=== PATIENT | male | born 1945 | race Caucasian/White ===

== ENCOUNTER 2019-07-05 05:45 | Inpatient (IN) ==
--- NOTE | 2019-07-04 10:16 | Anesthesiology Consultation ---
Date of Service July 04, 2019 Assessment & Plan (1) Encounter for pre-operative examination: Chart Review Chart Review: Acceptable Risk for Surgery (moderate to high), Pending: Refer to Additional Notes / Consult section (patient needs to stop Brulinta 3 days prior to surgery;patient at high risk for in stent thrombosis(proximal LAD stent 03/31/2019)) and Patient NOT seen in Pre Admission Testing ASA ASA4 Proposed Anesthesia Anesthesia Type: General Anesthesia Line Insertion: Arterial line History Surgery Operation Date: 07/05/19 07:30 Proposed Procedures p Right Robotic Video-Assisted Thoracoscopy with Right Middle Lobectomy, and Mediastinal Lymphadenectomy - Zay Colby MD, FACS Height/Weight Height: 5 ft 8 in Weight: 77.111 kg Allergies Allergy/AdvReac Type Severity Reaction Status Date / Time No Known Allergies Allergy Unverified 06/20/19 09:41 Medications Home Medications Medication Instructions Recorded Confirmed Last Taken aspirin 81 mg tablet,delayed 81 mg PO DAILY 05/23/19 06/20/19 05/25/19 release atorvastatin 80 mg tablet 80 mg PO HS 05/23/19 06/20/19 05/25/19 furosemide 20 mg tablet 20 mg PO HS 05/23/19 06/20/19 05/25/19 losartan 25 mg tablet 25 mg PO QAM 05/23/19 06/20/19 05/25/19 metoprolol succinate 25 mg 25 mg PO QAM 05/23/19 06/20/19 05/25/19 tablet,extended release 24 hr nitroglycerin 0.4 mg sublingual 0.4 mg SL UD PRN 05/23/19 06/20/19 03/28/19 tablet ticagrelor 90 mg tablet 90 mg PO BID 05/23/19 06/20/19 05/25/19 Past Medical History Medical History COPD (chronic obstructive pulmonary disease) Current every day smoker History of heart attack X2 - MOST RECENT MAR 2019 AND STENTS 5 YR AGO - STENT X 1 History of kidney stones Hyperlipidemia Hypertension Exercise / Class Metabolic Activity III < 4 Walking/Shop/Light housework Past Family History Family History Mother Cancer Brother Colorectal cancer Sister Heart disease Past Surgical History Surgical History History of bronchoscopy History of colonoscopy History of heart artery stent March 2019 AND 5 YR AGO , STENT X1 History of urologic surgery FOR KIDNEY STONE Past Anesthesia History No Hx of Anesthesia Complications and No Family Hx of Anesthesia Complications History of PONV No Hx of PONV and No Hx of Motion Sickness Social History Smoking Status: Current every day smoker (STARTED AT 17 YEARS OLD) tobacco type: cigarettes Smoking cigarettes per day: 30 Hx Alcohol Use: Yes Alcohol type: hard liquor Alcohol Intake Frequency Comment: 1 SHOT A DAY Hx Substance Use: No substance use type: does not use Testing Laboratory Results WBC: 7.9 Hc.2 Hct: 47.4 PLATELETS: 309 SODIUM: 137 POTASSIUM: 4.5 CHLORIDE: 105 CO2: 27 BUN: 16 CREATININE: 1.1 GLUCOSE: 106 PT: PTT: INR: UA: TYPE AND SCREEN: Electrocardiogram Date: 03/30/19 Findings: + SB @ (at 56;low voltage QRS;anteroseptal infarct ,age ?) Chest X-Ray Date: 03/29/19 Findings: + mass (stable right lower lung mass) Echocardiogram Date: 03/31/19 EF: 55 LV Function: normal Other Findings: + diastolic dysfunction (grade 1) Valvular Disease: + no significant valvular disease Cardiac Catheterization Date: 03/28/19 Findings: + LMA (Distal left main trunk-40%; Proximal LAD 75%- s/p PTCA and JULITO ) Intervention: + PCI (proximal LAD) and + JULITO placed (proximal LAD)
[2019-07-05] MEDS ORDERED: LR 15ML/HR IV SCH (06:00)
--- NOTE | 2019-07-05 06:18 | History & Physical Report ---
Date of Service July 05, 2019 Assessment & Plan (1) Mass of middle lobe of right lung: I have had a long talk with the patient in the office and here this morning and the preoperative unit. He looks remarkably well preserved and his lung function is remarkably preserved for a man who was smoked for 56 years and was well over [id number] history. He also has coronary artery disease and was symptomatic with an MT just 3 months ago however, his setup technician is deemed him to be a moderate risk. We are going to proceed with a right middle lobectomy robotically today. We will also do a based on lymphadenectomy. My feeling is that we are dealing with a non-small cell lung carcinoma. It is not in a good place to biopsy percutaneously or bronchoscopically. I discussed this in detail and outlined risk such as pneumonia, pulmonary emboli with deep vein thrombosis, myocardial infarction or arrhythmia, prolonged air leak, empyemas, and infections. He understands. We will proceed today. Present on Admission?: Yes History of Present Illness Raoul Martin is a 73-year-old male who continues to smoke and in fact smoked a pack of cigarettes yesterday. He has coronary artery disease and had a stent placed 3 months ago and is on Brilinta. He has been found to have a hypermetabolic mass in his right middle lobe which is almost certainly a non- small cell lung carcinoma. He has no evidence of extrathoracic spread. He has been worked up by Dr. Tejinder Lindsay from pulmonary and has seen his setup technician down in [place]. He is a moderate risk of in-stent stenosis however, our window of opportunity to resect this and give him his best chance of a cure is now. We have discussed this fully with the patient and his family as well as referring physicians. We have also discussed this with anesthesia. We are going to proceed with a robot-assisted right thoracoscopic middle lobectomy today. Primary Care Provider: Berry Mcfadden MD Allergies Allergy/AdvReac Type Severity Reaction Status Date / Time No Known Allergies Allergy Verified 07/05/19 06:07 Home Medications Home Medications Medication Instructions Recorded Confirmed Type aspirin 81 mg tablet,delayed 81 mg PO DAILY 05/23/19 07/05/19 History release atorvastatin 80 mg tablet 80 mg PO HS 05/23/19 07/05/19 History furosemide 20 mg tablet 20 mg PO HS 05/23/19 07/05/19 History losartan 25 mg tablet 25 mg PO QAM 05/23/19 07/05/19 History metoprolol succinate 25 mg 25 mg PO QAM 05/23/19 07/05/19 History tablet,extended release 24 hr nitroglycerin 0.4 mg sublingual 0.4 mg SL UD PRN 05/23/19 07/05/19 History tablet ticagrelor 90 mg tablet 90 mg PO BID 05/23/19 07/05/19 History Past Med/Surg History Medical History COPD (chronic obstructive pulmonary disease) Current every day smoker History of heart attack X2 - MOST RECENT MAR 2019 AND STENTS 5 YR AGO - STENT X 1 History of kidney stones Hyperlipidemia Hypertension Surgical History History of bronchoscopy History of colonoscopy History of heart artery stent March 2019 AND 5 YR AGO , STENT X1 History of urologic surgery FOR KIDNEY STONE Family History Mother Cancer Brother Colorectal cancer Sister Heart disease Social History (Updated 06/01/19 @ 16:12 by Karlee Mishra RN) Preferred Language: Argentine Communication Ability: Effective Aircraft Communicator Required: No Beliefs That Will Affect Care: None marital status: Current Living Situation: Spouse current occupational status: retired 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 Denies palpitations. Otherwise "I am ready to go ". Physical Exam Physical Exam: This is a male who appears younger than stated age of 73. He is awake and alert. His extra documents are intact. Sclera pale but anicteric. He has no nasolabial flattening. His tongue is midline. Sore mucosa is moist. His neck is supple. I do not detect carotid bruits or lymphadenopathy. He has no wheezing although he does have mildly decreased breath sounds in the bases. He has a regular rate and rhythm of his heart. His abdomen is flat soft nontender no evidence of ascites or hepatosplenomegaly. He has no peripheral edema or joint effusions. He has peripheral pulses which are palpable. Neurologically is completely intact. PG Care Time/CCT Total # of Minutes Spent Total Time Spent with Patient: Total time spent is greater than 50% in coordination of care (as documented) at patient's floor/unit and/or counseling patient:
[2019-07-05] MEDS ORDERED: BUPIVACAINE 0.5 % 5 MG/1 ML MPF 30ML VIAL ONE (06:59)
[2019-07-05] MEDS ORDERED: SODIUM CHLORIDE 0.9% PF 50 ML VIAL ONE (06:59)
[2019-07-05] MEDS ORDERED: BUPIVACAINE LIPOSOME 1.3% 266 MG/20 ML VIAL ONE (07:00)
[2019-07-05] MEDS ORDERED: LARYING-O-JET KIT (LTA) ONE (07:01)
[2019-07-05] MEDS ORDERED: GLYCOPYRROLATE 0.2 MG/ML VIAL ONE (07:01)
[2019-07-05] MEDS ORDERED: DEXAMETHASONE SOD INJ 4 MG/ML VIAL ONE (07:01)
[2019-07-05] MEDS ORDERED: LIDOCAINE HCL 2% 2 ML VIAL/AMP(20MG/ML) INFIL ONE (07:01)
[2019-07-05] MEDS ORDERED: fentaNYL citrate 100 MCG/2 ML VIAL ONE ×3 (07:01→11:57)
[2019-07-05] MEDS ORDERED: PROPOFOL IV EMULSION 10 MG/ML 20 ML VIAL IV ONE (07:01)
[2019-07-05] MEDS ORDERED: NEOSTIGMINE METHYLSULFATE 5 MG/5 ML SYR ONE (07:01)
[2019-07-05] MEDS ORDERED: ONDANSETRON INJ 2 MG/ML 2 ML VIAL ONE (07:01)
[2019-07-05] MEDS ORDERED: MIDAZOLAM HCL 1 MG/ML 2ML VIAL ONE (07:01)
[2019-07-05] MEDS ORDERED: ROCURONIUM BROMIDE 10 MG/ML 5 ML VIAL ONE ×6 (07:01→10:04)
[2019-07-05] MEDS ORDERED: ALBUMIN HUMAN 5% 12.5 GM/250 ML VIAL IV ONE (07:01)
[2019-07-05] MEDS ORDERED: ALBUT/IPRATROP 3MG/0.5MG NEB 3 ML VIAL NEB STA (07:05)
[2019-07-05] MEDS ORDERED: CEFAZOLIN 2000MG 2,000 MG/15 ML SYR IV ONE (09:09)
[2019-07-05] MEDS ORDERED: SURGICEL ABSORB HEMOSTAT 2IN X 14IN TOP ONE (09:12)
[2019-07-05] MEDS ORDERED: PHENYLEPHRINE 100MCG/ML 5ML SYR ONE (09:35)
[2019-07-05] MEDS ORDERED: PHENYLEPHRINE HCL 10 MG/ML VIAL ONE (09:35)
--- NOTE | 2019-07-05 11:14 | Post Operative Brief Note ---
PG Immediate Post Op with CF Date of Surgery July 05, 2019 Pre & Post Diagnosis Operation Date: 07/05/19 07:30 Pre-Op Diagnosis: Right Lung Mass Post-Op Diagnosis: Right Lung Mass I identified the patient and participated in the time-out.: Yes Procedure Operation Date: 07/05/19 07:30 Actual Procedures p Right Robotic Video-Assisted Thoracoscopy with Right Middle Lobectomy, and Mediastinal Lymphadenectomy(Right) - Zay Colby MD, FACS Surgeon Zay Colby MD, FACS Sterile Processing Manager Letitia SEGAL Estimated Blood Loss 75 Findings Consistent with Post-Op Diagnosis Specimens Specimen Description: A. R9 lymph node B. R8 lymph node C. Level 7 lymph node x's 4 D. Level R4 lymph node x's 3 E. R2 lymph node x's 5 F. R10 lymph node x's 2 G. R11 lymph node x's 8 H. R12 lymph node x's 7 Drains Chest Tube (24 Fr Thal Chest Tube) and Muñiz Catheter (16 Fr muñiz catheter inserted by YEE Francis without difficulty. Draining clear yellow urine. Anesthesia to monitor urine output. )
--- NOTE | 2019-07-05 11:20 | Operative Report ---
PG Post Operative Report Pre & Post Diagnosis Operation Date: 07/05/19 07:30 Pre-Op Diagnosis: Right Lung Mass Post-Op Diagnosis: Right Lung Mass I identified the patient and participated in the time-out.: Yes Procedure Operation Date: 07/05/19 07:30 Actual Procedures p Right Robotic Video-Assisted Thoracoscopy with Right Middle Lobectomy, and Mediastinal Lymphadenectomy(Right) - Zay Colby MD, FACS Surgeon Zay Colby MD, FACS Principal Gifts Officer Letitia SEGAL Estimated Blood Loss 75 Findings Consistent with Post-Op Diagnosis Specimens Lymph Nodes Right middle lobe Drains 24 FR. Anesthesia Type General Complications none Disposition Accompanied Patient To Recovery: No Disposition: Recovery Room Description of Procedure This is a 73-year-old male with long history of cigarette smoker he has a hypermetabolic mass in his right middle lobe. He was worked up and felt to be a candidate for surgery. On the morning of 07/05/2019 patient brought to operating room and underwent an uncomplicated robot-assisted thoracoscopic right middle lobectomy with extensive mediastinal lymphadenectomy. He tolerated it well. Procedure: Patient brought to the operating room and laid supine position. General anesthesia induced and frequent which performed a double-lumen tube with bronchoscopic guidance. After appropriate monitoring and drainage lines were placed patient was placed in the left lateral acute position his right chest prepped and draped in usual sterile fashion. Appropriate timeout of been called and prophylactic antibiotics given patient had 5 separate ports made. A 12 mm camera port was placed close to the midaxillary line the eighth interspace and then anterior to this an 8 mm port was placed in posterior to this an 8 mm port was placed about 10 cm away in each direction. The posterior incision was another 10 cm away with a 5 mm port. We placed an plant attendant or assistant operator's port just above the diaphragm anteriorly and then posteriorly. These were 15 mm ports. No the posterior port was placed later during the case as we did not have a good angle for the vein. Really upon entering the chest we could see that we had good isolation. Inferior pulmonary ligament was taken down the level 9 and 8 lymph nodes harvested. I then went up and removed almost the entire packet of of a group of lymph nodes in the subcarinal area. We then removed a large packet of nodes from the level 2 and level 4 areas. Coming back down anteriorly within took some level 10 nodes and then went to the fissures and dissected out multiple level 11 nodes. We isolated the inferior pulmonary vein nicely and Endo DES stapler was fired although we did it from a posterior incision which we had made. We then fired a stapler across the right middle lobe bronchus and then there was one large middle lobe artery. We did complete the fissure between the lower lobe and middle lobe with the cautery and there were really no air leaks here. We then used a stapler to initiate the fissure anteriorly. The right middle lobe was then delivered off the field in a Endobag. Prior to case we placed 20 cc of 260 mg of Exparel and 30 cc of 0.5% bupivacaine and 200 cc of normal saline injected each of the ports before making incision. We then did not enter thoracic intercostal block and blocked each of the intercostal spaces with the liposomal bupivacaine under thoracoscopic guidance. At the conclusion of the case we placed 24 Lebanese chest tube to the anterior port and sutured in place heavy silk suture. We then closed the larger assistance ports with 0 Vicryl to close the muscle layers and then 4 Monocryl was used in running septic or fashion approximate the wound edges. He tolerated very well and was extubated in the room with negligible blood loss. I attest to the content of the Intraoperative Record and any orders documented therein. Any exceptions are noted below.
[2019-07-05] MEDS ORDERED: METOCLOPRAMIDE HCL INJ 5 MG/ML 2 ML VIAL IV ONE (11:35)
[2019-07-05] MEDS ORDERED: ASPIRIN 325 MG ECTAB PO ONE ×2 (11:46→11:55)
[2019-07-05] MEDS ORDERED: ePHEDrine sulfate 50 MG/ML AMP IV PRN (11:56)
[2019-07-05] MEDS ORDERED: ATROPINE SULFATE 0.1 MG/ML 10ML SYR IV PRN (11:56)
[2019-07-05] MEDS ORDERED: ONDANSETRON INJ 2 MG/ML 2 ML VIAL IV PRN ×2 (11:56→13:04)
[2019-07-05] MEDS ORDERED: HYDROmorphone INJ 1 MG/ML SYRINGE IV PRN (11:56)
[2019-07-05] MEDS: fentaNYL citrate 100 MCG/2 ML VIAL IV PRN ×2 (11:57→12:02)
--- NOTE | 2019-07-05 12:06 | XRay Report ---
XR chest 1V portable CLINICAL HISTORY: right middle lobectomy COMPARISON STUDY: March 29, 2019 FINDINGS: There is been interval resection of the right midlung zone pulmonary nodule. There is a rig ht-sided chest tube present. There is a trace right apical pneumothorax. There are bibasilar parenchy mal opacities which are nonspecific likely are atelectatic. There are old left-sided rib fractures.[ IMPRESSION: 1. Interval resection of a right midlung zone pulmonary nodule 2. Right-sided chest tube. Trace right apical pneumothorax 3. Basilar opacities statistically atelectatic Electronically signed by: Smith Gloria M.D. 07/05/2019 12:05 PM
[2019-07-05] MEDS ORDERED: NITROGLYCERIN SL 0.4 MG/TAB TAB SL PRN (13:04)
[2019-07-05] MEDS: D5W AND 1/2NSS 1,000 ML IV SCH ×2 (13:11→21:21)
[2019-07-05] MEDS: ACETAMINOPHEN 1,000 MG/100 ML VIAL IV SCH ×2 (13:17→21:21)
[2019-07-05] MEDS: MoRPHine SULFATE 2 MG/ML CARP IV PRN ×3 (13:18→20:32)
--- NOTE | 2019-07-05 13:41 | Anesthesiology Progress Note ---
Date of Service July 05, 2019 Anesthesia Post Procedure Vital Signs Vital Signs: Temp Pulse Pulse Resp BP BP Pulse Ox 07/05/19 13:15 67 18 118/55 L 92 07/05/19 13:01 36.5 C 67 11 L 101/58 L 90 07/05/19 12:31 37.3 C 66 19 117/60 96 07/05/19 12:20 37.3 C 66 17 112/64 100 07/05/19 12:10 64 17 117/64 100 07/05/19 12:00 65 17 116/68 100 07/05/19 11:50 69 22 124/57 L 100 07/05/19 11:40 64 22 135/70 100 07/05/19 11:34 36.3 C L 65 24 132/70 100 07/05/19 07:16 63 18 97 07/05/19 06:16 36.6 C 61 20 162/78 H 96 Pain Intensity Right Chest: Pain Intensity: 4 Transfer of Care Handoff Completed per policy Notes Mental Status: alert / awake / arousable and participated in evaluation Patient Amnestic to Procedure: Yes Nausea / Vomiting: adequately controlled Pain: adequately controlled Airway Patency, RR, SpO2: stable & adequate BP & HR: stable & adequate Hydration State: stable & adequate Anesthetic Complications: no major complications apparent and Pt Satisfied with anesthetic care Notes: The patient is a 73 y/o male with a history of coronary artery disease with recent MN with JULITO to the LAD 03/2019 who is status post Right Robotic Video-Assisted Thoracoscopy with Right Middle Lobectomy, and Mediastinal Lymphadenectomy. The patient did well intraoperatively with no issues. He was extubated without difficulty and taken to PACU. The patient did well in PACU a nd will be transferred to the ICU for close monitoring. Report was given to the supervisor maintenance and custodians Dr. Lindsay.
[2019-07-05] MEDS ORDERED: ALBUT/IPRATROP 3MG/0.5MG NEB 3 ML VIAL NEB PRN (15:24)
--- NOTE | 2019-07-05 15:24 | Critical Care Consultation ---
Date of Consultation July 05, 2019 Assessment & Plan (1) Coronary arteriosclerosis: Impression: 73-year-old male found to have PET avid right middle lobe mass concerning for primary malignancy status post resection today. He is doing well clinically. Recommendations: 1. Status post right middle lobectomy for lung cancer: Management per thoracic surgery. Defer chest tube management to them. Pain control per thoracic surgery. 2. COPD: The patient does not appear overtly bronchospastic currently. No indication for steroids. As needed DuoNeb's. 3. Hypoxemic respiratory failure: Tinea wean oxygen as tolerated. I-S as tolerated. 4. Coronary artery disease: Status post drug-eluting stent 3 months ago. Restart aspirin. If he does well may consider restarting his Brilinta tomorrow. He is been off for 5 days. Would like to minimize exposure off due to risk of in-stent restenosis. 5. Remaining issues have been well addressed by the thoracic surgical service. We will continue to follow during his ICU course. Feel free to contact us with questions or concerns. (2) Status post lobectomy of lung: (3) Lung cancer: (4) Hypoxemia: History of Present Illness Attending Physician: Zay Colby MD, FACS History of Present Illness Patient seen at the request of Dr. Colby postoperatively. I had the opportunity of meeting this patient the pulmonary clinic. He was a 73-year-old referred for an abnormal chest x-ray. This demonstrated a right middle lobe nodule which was on CT scan. PET scan showed avidity of the nodule without any obvious uptake. He underwent endobronchial ultrasound to clear the mediastinum with no evidence of pathologically involved lymph nodes. He was taken today for resection of the right middle lobe with lymph node dissection. He does have a history of coronary disease status post myocardial infarction about 3 months ago with drug-eluting stents placed. He has been off his Brilinta. Aspirin was given today. He is hemodynamically stable and awake alert. He is complaining of some postoperative pain. Allergies Allergy/AdvReac Type Severity Reaction Status Date / Time No Known Allergies Allergy Verified 07/05/19 06:07 Home Medications Home Medications Medication Instructions Recorded Confirmed Type aspirin 81 mg tablet,delayed 81 mg PO DAILY 05/23/19 07/05/19 History release atorvastatin 80 mg tablet 80 mg PO HS 05/23/19 07/05/19 History furosemide 20 mg tablet 20 mg PO HS 05/23/19 07/05/19 History losartan 25 mg tablet 25 mg PO QAM 05/23/19 07/05/19 History metoprolol succinate 25 mg 25 mg PO QAM 05/23/19 07/05/19 History tablet,extended release 24 hr nitroglycerin 0.4 mg sublingual 0.4 mg SL UD PRN 05/23/19 07/05/19 History tablet ticagrelor 90 mg tablet 90 mg PO BID 05/23/19 07/05/19 History Patient History Medical History COPD (chronic obstructive pulmonary disease) Current every day smoker History of heart attack X2 - MOST RECENT MAR 2019 AND STENTS 5 YR AGO - STENT X 1 History of kidney stones Hyperlipidemia Hypertension Surgical History History of bronchoscopy History of colonoscopy History of heart artery stent March 2019 AND 5 YR AGO , STENT X1 History of urologic surgery FOR KIDNEY STONE Family History Mother Cancer Brother Colorectal cancer Sister Heart disease Social History (Updated 06/01/19 @ 16:12 by Karlee Mishra RN) Preferred Language: Sami Communication Ability: Effective Tufting Machine Fixer Required: No Beliefs That Will Affect Care: None marital status: Current Living Situation: Spouse current occupational status: retired 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 No additions Physical Exam Constitutional: WD/WN, vitals as above Neck: trachea midline, no thyromegaly Respiratory: Decreased breath sounds. Chest tube in place. No air leak. Cardiovascular: RRR, no murmur, no edema Gastrointestinal (Abdomen): normal bowel sounds, soft, nontender, no hepatosplenomegaly Musculoskeletal: Extremities: extremities normal to inspection Skin: no rashes, warm and dry Neurologic: Nonfocal exam Lymphatic: no cervical lymphadenopathy Results & Data Vital Signs (Past 12 Hours) Vital Signs Temp Pulse Pulse Resp BP BP Pulse Ox 07/05/19 14:30 70 17 128/69 95 07/05/19 14:01 69 15 96 07/05/19 14:00 68 17 120/56 L 96 07/05/19 13:45 71 20 109/60 95 07/05/19 13:30 70 24 103/58 L 94 07/05/19 13:15 67 18 118/55 L 92 07/05/19 13:03 66 07/05/19 13:01 36.5 C 67 11 L 101/58 L 90 07/05/19 12:45 36.5 C 69 20 103/58 L 95 07/05/19 12:31 37.3 C 66 19 117/60 96 07/05/19 12:20 37.3 C 66 17 112/64 100 07/05/19 12:10 64 17 117/64 100 07/05/19 12:00 65 17 116/68 100 07/05/19 11:50 69 22 124/57 L 100 07/05/19 11:40 64 22 135/70 100 07/05/19 11:34 36.3 C L 65 24 132/70 100 07/05/19 07:16 63 18 97 07/05/19 06:16 36.6 C 61 20 162/78 H 96 Laboratory Results Preoperative lab were reviewed. Please see EMR Diagnostic Findings Imaging studies were reviewed Chest x-ray from today demonstrated postoperative changes with a right-sided chest tube in place. Small apical pneumo. Lungs were otherwise free of infiltrate. Coding Level of Care Code 27552 Inpt Consult Level 4 Diagnoses Coronary arteriosclerosis I25.10 Status post lobectomy of lung Z90.2 Lung cancer C34.90 Hypoxemia R09.02 Time Spent (min) 55
--- NOTE | 2019-07-05 15:28 | Cardiology Consultation ---
Date of Consultation July 05, 2019 Assessment & Plan (1) Coronary arteriosclerosis: he has a historyOf coronary disease including an acute myocardial infarction approximately 3 months ago. We have report of percutaneous intervention to the proximal LAD. The inpatient report having had a staged intervention with additional percutaneous intervention performed during the same admission. Those records are not available. Seems done very well since that procedure without recurrence of his index symptom. This primarily involves left arm and chest discomfort. As with all patients with known coronary disease, optimizing myocardial oxygen delivery and limiting demand is essential. We should maintain a good hemoglobin level, good oxygenation and normal blood pressures. We should avoid significant tachycardia, hypotension or hypoxia. Would agree with continuing his home medications including his beta-chica, anti-lipid agent and aspirin Restarting his Brilinta at the earliest opportunity is paramount in the hopes of preventing any acute stent thrombosis. Maintain good oxygen saturation Avoid significant tachycardia hypo or hypertension Monitor blood loss closely and consider transfusion for significant blood loss. History of Present Illness Reason for Consultation: History of CAD Requesting Physician: Earnestine Attending Physician: Zay Colby MD, [facility] History of Present Illness Patient is a 73-year-old gentleman with a history of coronary artery disease having most recently undergone percutaneous intervention possibly to multiple vessels in March of this year. The patient was discovered incidentally to have a right middle lung mass. Evaluation suggested malignancy and the absence of metastatic disease. He therefore underwent right middle lobectomy today for curative purposes. The initial perioperative. An operation appear to have been uncomplicated. The patient does have a remote history of coronary disease having suffered a myocardial infarction in 2012. It seems he did undergo angiography at that time and percutaneous intervention by report.Patient appeared to have done well since thatTime until March of this year. Patient states that he awoke from sleep with left arm discomfort. This eventually generalized to include precordial chest pain as well. He presented to an outside facility where he has felt to have acute myocardial infarction. It seems that the patient did undergo multivessel stenting as a staged procedure we do have some reports involving percutaneous intervention to the LAD. He is also noted to have some mild distal left main disease. It is unclear what other vessels required intervention. He claims to have done well since that point. He is a very active individual who was accustomed to moderate to severe activity. He has not reported recent symptoms of chest discomfort with activity or at rest. He does not appear to have limiting dyspnea. He is not appear to have significant fatigue. He denies a sense of palpitations, lightheadedness, dizziness or presyncope. Allergies Allergy/AdvReac Type Severity Reaction Status Date / Time No Known Allergies Allergy Verified 07/05/19 06:07 Home Medications Home Medications Medication Instructions Recorded Confirmed Type aspirin 81 mg tablet,delayed 81 mg PO DAILY 05/23/19 07/05/19 History release atorvastatin 80 mg tablet 80 mg PO HS 05/23/19 07/05/19 History furosemide 20 mg tablet 20 mg PO HS 05/23/19 07/05/19 History losartan 25 mg tablet 25 mg PO QAM 05/23/19 07/05/19 History metoprolol succinate 25 mg 25 mg PO QAM 05/23/19 07/05/19 History tablet,extended release 24 hr nitroglycerin 0.4 mg sublingual 0.4 mg SL UD PRN 05/23/19 07/05/19 History tablet ticagrelor 90 mg tablet 90 mg PO BID 05/23/19 07/05/19 History Patient History Medical History COPD (chronic obstructive pulmonary disease) Current every day smoker History of heart attack X2 - MOST RECENT MAR 2019 AND STENTS 5 YR AGO - STENT X 1 History of kidney stones Hyperlipidemia Hypertension Surgical History History of bronchoscopy History of colonoscopy History of heart artery stent March 2019 AND 5 YR AGO , STENT X1 History of urologic surgery FOR KIDNEY STONE Family History Mother Cancer Brother Colorectal cancer Sister Heart disease Social History Preferred Language: Qatari Communication Ability: Effective Cash Processor Required: No Beliefs That Will Affect Care: None marital status: Current Living Situation: Spouse current occupational status: retired 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 No history of lower extremity edema. No orthopnea. Physical Exam Physical Exam: The patient is alert and oriented. Mood and affect appeared normal. He answered all questions appropriately. Mildly somnolent HEENT: Pupils are equal and reactive to light and accommodation. Extraocular movements are intact. The sclerae are anicteric. Neuro: Cranial nerves intact Neck: Patient's neck is supple. He has palpable carotid pulses bilaterally without bruits on auscultation. There is no evidence of jugular venous distention. The thyroid is not enlarged. Lungs: Reduced breath sounds in the right lung. Some occasional crackles at the left base. No expiratory wheezing. Normal respiratory effort. Cardiac: Heart demonstrates a regular rate and rhythm. Normal S1 and S2. No murmurs on examination. Pulses: The patient has palpable radial pulses bilaterally that are equal in intensity Extremities: There was no evidence of hypoperfusion. There is no cyanosis or clubbing. There is no edema. Skin: I did not appreciate any rashes on examination today. Results & Data Vital Signs (Past 12 Hours) Vital Signs Temp Pulse Pulse Resp BP BP Pulse Ox 07/05/19 14:30 70 17 128/69 95 07/05/19 14:01 69 15 96 07/05/19 14:00 68 17 120/56 L 96 07/05/19 13:45 71 20 109/60 95 07/05/19 13:30 70 24 103/58 L 94 07/05/19 13:15 67 18 118/55 L 92 07/05/19 13:03 66 07/05/19 13:01 36.5 C 67 11 L 101/58 L 90 07/05/19 12:45 36.5 C 69 20 103/58 L 95 07/05/19 12:31 37.3 C 66 19 117/60 96 07/05/19 12:20 37.3 C 66 17 112/64 100 07/05/19 12:10 64 17 117/64 100 07/05/19 12:00 65 17 116/68 100 07/05/19 11:50 69 22 124/57 L 100 07/05/19 11:40 64 22 135/70 100 07/05/19 11:34 36.3 C L 65 24 132/70 100 07/05/19 07:16 63 18 97 07/05/19 06:16 36.6 C 61 20 162/78 H 96 Laboratory Results Abnormal Lab Results 07/05/19 07/05/19 07/05/19 06:04 06:04 13:04 POC Glucose Nasal Screen MRSA (PCR) Negative Genetic Analysis Reprt Blood Type A Negative Antibody Screen NEGATIVE Crossmatch See Detail 07/05/19 14:27 POC Glucose 142 H Nasal Screen MRSA (PCR) Genetic Analysis Reprt Blood Type Antibody Screen Crossmatch Diagnostic Findings Reviewed his cardiac catheterization report dated 03/28/2019. This involved stenting of the proximal LAD do to 75 percent eccentric hazy stenosis at that site. Echocardiogram performed 03/31/2019: Normal LV systolic function. Stage I diastolic dysfunction. Aortic valve sclerosis without stenosis. No other significant valvular disease. ECG Additional Comments: Preop EKG demonstrated sinus bradycardia with possible old inferior IN and poor R-wave progression in the anterior leads. PG Care Time/CCT Total # of Minutes Spent Total Time Spent with Patient: Total time spent is greater than 50% in coordination of care (as documented) at patient's floor/unit and/or counseling patient:
[2019-07-05] MEDS: OXYCODONE HCL IR 5 MG TAB (IMMEDIATE RELEASE) PO PRN (17:00)
[2019-07-05] MEDS: ATORVASTATIN 40 MG TAB PO SCH (20:15)
[2019-07-05] MEDS: METOCLOPRAMIDE HCL INJ 5 MG/ML 2 ML VIAL IV SCH (20:15)
[2019-07-05] MEDS: DOCUSATE SODIUM 100 MG CAP PO SCH (20:16)
[2019-07-05] MEDS ORDERED: INFLUENZA VACCINE HIGH DOSE 65+ 0.5 ML SYR IM ONE (21:00)
[2019-07-05] MEDS ORDERED: INFLUENZA ADMINISTRATION CHARGE ONE (21:00)
[2019-07-06] MEDS: D5W AND 1/2NSS 1,000 ML IV SCH (04:08)
[2019-07-06] MEDS: OXYCODONE HCL IR 5 MG TAB (IMMEDIATE RELEASE) PO PRN ×2 (04:08→10:00)
[2019-07-06] MEDS: METOCLOPRAMIDE HCL INJ 5 MG/ML 2 ML VIAL IV SCH ×2 (04:11→11:48)
[2019-07-06 04:24] LABS: Basophils # (auto) 0.01 K/uL (0-0.2); Basophils % (auto) 0.1 %; Eosinophils # (auto) 0.02 K/uL (0-0.5); Eosinophils % (auto) 0.2 %; Hematocrit (blood only) 41.5 % (42-52); Hemoglobin 14.1 g/dL (14.0-18.0); Immature Granulocytes # (auto) 0.03 K/uL (0.00-0.02); Immature Granulocytes % (auto) 0.3 %; Lymphocytes # (auto) 1.44 K/uL (1.2-3.4); Mean Corpuscular Hemoglobin 36.2 pg (25-34); Mean Corpuscular Volume 106.7 fL (80-100); Mean Platelet Volume 8.8 fL (7.4-10.4); Monocytes % (auto) 8.4 %; Neutrophils # (auto) 9.46 K/uL (1.4-6.5); Platelet Count 204 K/uL (130-400); RDW Coefficient of Variation 14.3 % (11.5-14.5); RDW Standard Deviation 56.1 fL (36.4-46.3); Red Blood Count 3.89 M/uL (4.7-6.1); White Blood Count 11.96 K/uL (4.8-10.8)
[2019-07-06 04:41] LABS: BUN Creatinine Ratio 17.4 (10-20); Calcium 8.1 mg/dl (8.5-10.1); Creatinine Clr Calc Pharmacy 50.6 ml/min; Est GFR (Non-African American) 56.9; Magnesium 1.9 mg/dl (1.8-2.4); Phosphorus 2.9 mg/dl (2.5-4.9); Potassium 4.1 mmol/L (3.5-5.1)
[2019-07-06] MEDS: ACETAMINOPHEN 1,000 MG/100 ML VIAL IV SCH (05:47)
[2019-07-06] MEDS: MoRPHine SULFATE 2 MG/ML CARP IV PRN ×6 (06:22→21:58)
--- NOTE | 2019-07-06 07:03 | XRay Report ---
XR chest 1V portable CLINICAL HISTORY: right middle lobectomy COMPARISON STUDY: 07/05/2019 FINDINGS: Postsurgical changes are present on the right. A right-sided chest tube is again evident. T here is increasing right-sided subcutaneous edema. There is a trace right apical pneumothorax. There are bilateral lower lobe basilar airspace opacities likely atelectatic although an infectious/inflamm atory processes could appear similar IMPRESSION: 1. Increasing right-sided subcutaneous emphysema 2. Stable trace right apical pneumothorax 3. Bibasilar airspace opacity statistically atelectatic Electronically signed by: Smith Gloria M.D. 07/06/2019 7:02 AM
--- NOTE | 2019-07-06 07:42 | Critical Care Progress Note ---
Date of Service July 06, 2019 Assessment & Plan (1) Coronary arteriosclerosis: Impression: 73-year-old male found to have PET avid right middle lobe mass concerning for primary malignancy status post resection today. He is doing well clinically. Recommendations: 1. Status post right middle lobectomy for lung cancer: Management per thoracic surgery. Defer chest tube management to them. Pain control per thoracic surgery. The increased density at the right lung base likely represents atelectatic changes. Continue to follow. 2. COPD: The patient does not appear overtly bronchospastic currently. No indication for steroids. Continue nebulized bronchodilators as needed 3. Hypoxemic respiratory failure: Tinea wean oxygen as tolerated. I-S as tolerated. 4. Coronary artery disease: Status post drug-eluting stent 3 months ago. Continue aspirin. Restarting Brilinta per thoracic surgery. Outpatient follow- up with cardiology 5. Patient appears stable to move out of the intensive care unit. Available to see as needed for pulmonary issues. Discussed with Dr. Colby. (2) Status post lobectomy of lung: (3) Lung cancer: (4) Hypoxemia: Subjective Patient did well overnight. No acute events. His pain is better controlled but he continues to have some discomfort at the surgical site. He is coughing but not expectorating phlegm. He feels his breathing is adequate. He is up to a chair this morning. Review of Systems Review of Systems: See HPI. No additions Physical Exam Constitutional: WD/WN, vitals as above Neck: trachea midline, no thyromegaly Respiratory: Mildly diminished breath sounds bilaterally with some crackles at the right lung base. No air leak on chest tube Cardiovascular: RRR, no murmur, no edema Gastrointestinal (Abdomen): normal bowel sounds, soft, nontender, no he patosplenomegaly Musculoskeletal: Extremities: extremities normal to inspection Skin: no rashes, warm and dry Lymphatic: no cervical lymphadenopathy Results & Data Vital Signs (Past 12 Hours) Vital Signs Temp Pulse Resp BP Pulse Ox 07/06/19 06:01 64 16 89 L 07/06/19 06:00 36.6 C 64 18 122/67 90 07/06/19 05:01 64 13 93 07/06/19 05:00 68 17 121/64 92 07/06/19 04:28 64 19 130/68 87 L 07/06/19 04:00 36.7 C 67 19 88 L 07/06/19 03:00 66 16 113/62 89 L 07/06/19 02:02 75 18 121/73 92 07/06/19 01:00 67 18 108/60 94 07/06/19 00:00 36.7 C 73 21 108/64 94 07/05/19 23:00 36.7 C 79 18 117/68 93 07/05/19 22:56 68 07/05/19 22:00 70 16 118/61 95 07/05/19 21:00 75 17 116/61 91 07/05/19 20:00 36.5 C 75 20 116/62 94 07/05/19 19:50 73 16 95 Laboratory Results 07/06/19 04:06 07/06/19 04:06 Diagnostic Findings Chest x-ray from today independently reviewed and compared to chest x-ray from 07/05/2019. There is mild increased right basilar density likely atelectasis. Otherwise no significant change Coding Level of Care Code 01182 Subseq Hosp Care Lvl 2 Diagnoses Coronary arteriosclerosis I25.10 Status post lobectomy of lung Z90.2 Lung cancer C34.90 Hypoxemia R09.02
--- NOTE | 2019-07-06 08:12 | Anesthesia Procedure Note ---
Date of Service July 06, 2019 this is a post procedure note, not a post epidural note.The patient did not have an epidural. Anesthesia Post Epidural Note Vital Signs Vital Signs: Temp Pulse Resp BP Pulse Ox 36.7 C 76 20 146/79 H 95 07/07/19 11:05 07/07/19 11:05 07/07/19 11:05 07/07/19 11:05 07/07/19 11:05 Pain Intensity Right Chest: Pain Intensity: 4 Notes Mental Status: alert / awake / arousable and participated in evaluation Patient Amnestic to Procedure: Yes Nausea / Vomiting: adequately controlled Pain: adequately controlled Airway Patency, RR, SpO2: stable & adequate BP & HR: stable & adequate Hydration State: stable & adequate Anesthetic Complications: no major complications apparent and Pt Satisfied with anesthetic care
[2019-07-06] MEDS: ASPIRIN 81 MG ECTAB PO SCH (08:20)
[2019-07-06] MEDS: METOPROLOL SUCC 25MG EXT REL TAB PO SCH (08:20)
[2019-07-06] MEDS: DOCUSATE SODIUM 100 MG CAP PO SCH ×2 (08:20→20:14)
[2019-07-06] MEDS: LOSARTAN POTASSIUM 25 MG TAB PO SCH (08:20)
--- NOTE | 2019-07-06 08:20 | Surgery Progress Note ---
Date of Service July 06, 2019 Assessment & Plan (1) Status post lobectomy of lung: Present on Admission?: No (2) Lung cancer: Present on Admission?: Yes (3) Coronary arteriosclerosis: Present on Admission?: Yes (4) Old myocardial infarct: Overall, I am quite pleased with the patient. He tolerated his lobectomy very well. Blood loss was negligible. His labs look good today. He got aspirin yesterday but we are going to resume his Brilinta today. We will move him up to the regular floor. Discontinue IV fluids and try to wean his oxygen off. Have some trouble with urination but this is "getting better". He is tolerating a diet. He has no air leak and I will probably remove his chest tube tomorrow. 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 It appears all margins are negative. Of course, we harvested multiple lymph nodes and the final pathology is not back on those yet. They understand. Present on Admission?: Yes Subjective Mr. Martin was seen this morning. He sitting in a chair on 1 L of O2 with saturations at 92%. He has some incision pain as expected but has done very well. Denies chest pain or left arm pain. No palpitations. Physical Exam Physical Exam: Actually moving air fairly well. He has mild expiratory wheezing. He has no air leak. He has no neck vein distention. He has a regular rate and rhythm of his heart. Sequential compression devices are in place but he has no edema. Good perfusion to his feet. Results & Data Vital Signs (Past 12 Hours) Vital Signs Temp Pulse Resp BP Pulse Ox 07/06/19 07:00 36.7 C 64 14 128/74 92 07/06/19 06:40 63 07/06/19 06:01 64 16 89 L 07/06/19 06:00 36.6 C 64 18 122/67 90 07/06/19 05:01 64 13 93 07/06/19 05:00 68 17 121/64 92 07/06/19 04:28 64 19 130/68 87 L 07/06/19 04:00 36.7 C 67 19 88 L 07/06/19 03:00 66 16 113/62 89 L 07/06/19 02:02 75 18 121/73 92 07/06/19 01:00 67 18 108/60 94 07/06/19 00:00 36.7 C 73 21 108/64 94 07/05/19 23:00 36.7 C 79 18 117/68 93 07/05/19 22:56 68 07/05/19 22:00 70 16 118/61 95 07/05/19 21:00 75 17 116/61 91 PG Care Time/CCT Total # of Minutes Spent Total Time Spent with Patient: Total time spent is greater than 50% in coordination of care (as documented) at patient's floor/unit and/or counseling patient:
--- NOTE | 2019-07-06 08:20 | Operative Report ---
PG Post Operative Report Pre & Post Diagnosis Operation Date: 07/05/19 07:30 Pre-Op Diagnosis: Right Lung Mass Post-Op Diagnosis: Right Lung Mass I identified the patient and participated in the time-out.: Yes Procedure Operation Date: 07/05/19 07:30 Actual Procedures p Right Robotic Video-Assisted Thoracoscopy with Right Middle Lobectomy, and Mediastinal Lymphadenectomy(Right) - Zay Colby MD, FACS Surgeon Zay Colby MD, FACS Allied Health Instructor Letitia SEGAL Estimated Blood Loss 75 I attest to the content of the Intraoperative Record and any orders documented therein. Any exceptions are noted below.
[2019-07-06] MEDS ORDERED: TICAGRELOR 90 MG TAB PO ONE (08:22)
[2019-07-06] MEDS: TICAGRELOR 90 MG TAB PO SCH ×2 (08:22→20:04)
[2019-07-06] MEDS: NICOTINE 14 MG/24 HR PATCH TD SCH (08:57)
[2019-07-06] MEDS ORDERED: ENOXAPARIN INJ 40 MG/0.4 ML SYR SQ SCH (09:00)
--- NOTE | 2019-07-06 10:39 | Cardiology Progress Note ---
Date of Service July 06, 2019 Assessment & Plan (1) Coronary arteriosclerosis: No clinical evidence of ischemia or acute coronary syndrome. Seems that the plan is to resume his presented today. He is already taking the remainder of his cardiac medications. His hemoglobin level is normal today. Blood pressure pulses have been normal. Appears to be maintaining reasonable oxygenation on some supplemental oxygen. Care this point is simply supportive. Will continue to monitor him for any symptoms concerning for coronary insufficiency, angina or ACS. Subjective Patient's primary concern this morning was breathing difficulty. States he is more comfortable sitting upright or standing. He has some discomfort in the right lower chest area. Review of Systems Review of Systems: Per HPI Physical Exam Physical Exam: The patient is alert and oriented. Mildly tachypneic. Somewhat uncomfortable. Answered all questions appropriately.. Neuro: Cranial nerves intact Lungs: Normal breath sounds in both lung burgos. No expiratory wheezing. Norm al excursion. Some occasional bronchial breath sounds associated with chest tube in the right lung. Cardiac: Heart demonstrates a regular rate and rhythm. Normal S1 and S2. No murmurs on examination. Results & Data Vital Signs (Past 12 Hours) Vital Signs Temp Pulse Pulse Resp BP Pulse Ox 07/06/19 10:28 73 24 95 07/06/19 08:00 62 18 138/57 L 94 07/06/19 07:00 36.7 C 64 14 128/74 92 07/06/19 06:40 63 07/06/19 06:01 64 16 89 L 07/06/19 06:00 36.6 C 64 18 122/67 90 07/06/19 05:01 64 13 93 07/06/19 05:00 68 17 121/64 92 07/06/19 04:28 64 19 130/68 87 L 07/06/19 04:00 36.7 C 67 19 88 L 07/06/19 03:00 66 16 113/62 89 L 07/06/19 02:02 75 18 121/73 92 07/06/19 01:00 67 18 108/60 94 07/06/19 00:00 36.7 C 73 21 108/64 94 07/05/19 23:00 36.7 C 79 18 117/68 93 07/05/19 22:56 68 Laboratory Results Abnormal Lab Results 07/05/19 07/05/19 07/05/19 06:04 13:04 14:27 WBC RBC Hgb Hct MCV MCH MCHC RDW Std Deviation RDW Coeff of Baljeet Plt Count MPV Immature Gran % (Auto) Neut % (Auto) Lymph % (Auto) Hitchcock % (Auto) Eos % (Auto) Baso % (Auto) Immature Gran # (Auto) Neut # (Auto) Lymph # (Auto) Hitchcock # (Auto) Eos # (Auto) Baso # (Auto) Sodium Potassium Chloride Carbon Dioxide Anion Gap BUN Creatinine Est Cr Clr Drug Dosing Est GFR ( Amer) Est GFR (Non-Af Amer) BUN/Creatinine Ratio Glucose POC Glucose 142 H Calcium Phosphorus Magnesium Nasal Screen MRSA (PCR) Negative Genetic Analysis Reprt 07/05/19 07/05/19 07/06/19 16:35 19:53 04:06 WBC 11.96 H RBC 3.89 L Hgb 14.1 Hct 41.5 L MCV 106.7 H MCH 36.2 H MCHC 34.0 RDW Std Deviation 56.1 H RDW Coeff of Baljeet 14.3 Plt Count 204 MPV 8.8 Immature Gran % (Auto) 0.3 Neut % (Auto) 79.0 Lymph % (Auto) 12.0 Hitchcock % (Auto) 8.4 Eos % (Auto) 0.2 Baso % (Auto) 0.1 Immature Gran # (Auto) 0.03 H Neut # (Auto) 9.46 H Lymph # (Auto) 1.44 Hitchcock # (Auto) 1.00 H Eos # (Auto) 0.02 Baso # (Auto) 0.01 Sodium Potassium Chloride Carbon Dioxide Anion Gap BUN Creatinine Est Cr Clr Drug Dosing Est GFR ( Amer) Est GFR (Non-Af Amer) BUN/Creatinine Ratio Glucose POC Glucose 134 H 162 H Calcium Phosphorus Magnesium Nasal Screen MRSA (PCR) Genetic Analysis Reprt 07/06/19 07/06/19 04:06 07:35 WBC RBC Hgb Hct MCV MCH MCHC RDW Std Deviation RDW Coeff of Baljeet Plt Count MPV Immature Gran % (Auto) Neut % (Auto) Lymph % (Auto) Hitchcock % (Auto) Eos % (Auto) Baso % (Auto) Immature Gran # (Auto) Neut # (Auto) Lymph # (Auto) Hitchcock # (Auto) Eos # (Auto) Baso # (Auto) Sodium 136 Potassium 4.1 Chloride 103 Carbon Dioxide 28 Anion Gap 5.0 BUN 22 H Creatinine 1.24 Est Cr Clr Drug Dosing 50.6 Est GFR ( Amer) 66.0 Est GFR (Non-Af Amer) 56.9 BUN/Creatinine Ratio 17.4 Glucose 133 H POC Glucose 99 Calcium 8.1 L Phosphorus 2.9 Magnesium 1.9 Nasal Screen MRSA (PCR) Genetic Analysis Reprt PG Care Time/CCT Total # of Minutes Spent Total Time Spent with Patient: Total time spent is greater than 50% in coordination of care (as documented) at patient's floor/unit and/or counseling patient:
--- NOTE | 2019-07-06 10:57 | XRay Report ---
XR chest 1V portable CLINICAL HISTORY: 73 years-old Male presenting with sob. TECHNIQUE: Portable upright AP view of the chest was obtained. COMPARISON: 07/06/2019 at 6:43 AM. FINDINGS: Large bore right pleural drain remains position at the periphery of the right mid lung. Associated so ft tissue emphysema along the inferior right chest wall. Cardiac silhouette enlarged as on prior. Cor onary artery stents or calcification noted. Persistent right basilar opacity and minimal left basilar opacity. Small left pleural effusion. No identifiable pneumothorax. Degenerative changes of the thor acic spine. Old left rib fracture noted. Upper abdomen normal. IMPRESSION: 1. Right pleural drain in place. No identifiable right pneumothorax. 2. Resistant right basilar infiltrate. This could represent infection or atelectasis. 3. Small left pleural effusion. 4. Cardiomegaly. Electronically signed by: Raul Forte M.D. 07/06/2019 10:56 AM
[2019-07-06] MEDS ORDERED: LORazepam 1 MG/2 ML VIAL IV STA (11:06)
[2019-07-06] MEDS ORDERED: FUROSEMIDE 20 MG in SYRINGE 0 ML IV ONE (11:15)
[2019-07-06] MEDS ORDERED: KETOROLAC 30 MG/ML VIAL IV ONE (11:25)
[2019-07-06] MEDS ORDERED: KETOROLAC 30 MG/ML VIAL ONE (11:29)
--- NOTE | 2019-07-06 12:32 | Critical Care Progress Note ---
ICU Progress Note Date of Service July 06, 2019 Vital Signs Vital Signs Temp Pulse Pulse Resp BP BP Pulse Ox 07/06/19 11:18 76 185/81 H 99 07/06/19 10:28 73 24 95 07/06/19 08:00 62 18 138/57 L 94 07/06/19 07:00 36.7 C 64 14 128/74 92 07/06/19 06:40 63 07/06/19 06:01 64 16 89 L 07/06/19 06:00 36.6 C 64 18 122/67 90 07/06/19 05:01 64 13 93 07/06/19 05:00 68 17 121/64 92 07/06/19 04:28 64 19 130/68 87 L 07/06/19 04:00 36.7 C 67 19 88 L 07/06/19 03:00 66 16 113/62 89 L 07/06/19 02:02 75 18 121/73 92 07/06/19 01:00 67 18 108/60 94 Notes Notes: Called urgently to bedside to evaluate patient with acute onset of shortness of breath. The patient was assessed. He was standing upright. He was awake alert and conversant. He was tachypneic. He is complaining of pain in the right side of his chest. I assessed the patient for bilateral breath sounds. He was not wheezing. He had received a chest x-ray and EKG as well as a bronchodilator treatment prior to my arrival. I reviewed the chest x-ray and EKG which did not demonstrate any acute abnormalities. His chest tube continued to manifest excellent titling. I attached it to suction with no evidence of an air leak. He was complaining of 9 out of 10 pain at his surgical site. Thoracic surgery had ordered Lasix and Ativan which the patient was just receiving. I administered some morphine which was also beneficial. We then gave him a Toradol dose as well as some additional morphine with improvement in his clinical symptoms. I discussed the case with Dr. Colby on the phone and at bedside with Dr. Michelle. Myocardial ischemia felt to be unlikely. No evidence of pneumothorax. I have not excluded pulmonary embolism although it is felt consistent with acute surgical pain. We will continue narcotics and anti-inflammatories and reassess. Do not think CT angiogram is warranted currently. The patient had significant improvement. We will continue to follow.
[2019-07-06] MEDS: ACETAMINOPHEN 325 MG TAB PO SCH ×2 (13:33→20:03)
[2019-07-06] MEDS: ATORVASTATIN 40 MG TAB PO SCH (20:03)
[2019-07-07] MEDS: ACETAMINOPHEN 325 MG TAB PO SCH ×2 (02:16→07:21)
[2019-07-07] MEDS: OXYCODONE HCL IR 5 MG TAB (IMMEDIATE RELEASE) PO PRN (06:33)
[2019-07-07] MEDS: MoRPHine SULFATE 2 MG/ML CARP IV PRN (07:21)
--- NOTE | 2019-07-07 07:25 | XRay Report ---
XR chest 1V portable HISTORY: 73 years-old Male RML follow-up study in a patient with respiratory distress and recent rig ht lung surgery COMPARISON: Chest radiograph 07/06/2019 TECHNIQUE: Portable AP view of the chest FINDINGS: Unchanged cardiomediastinal and hilar silhouettes. No pneumothorax. Moderate emphysema. Postoperative changes of the right lung with stable positioning of the right-sided chest tube. Persistent subcutan eous emphysema about the right lateral chest wall. Trace pleural effusions with persistent right grea ter than left bibasilar opacities. Multiple healed remote left-sided rib fractures. Degenerative mckinley ges of the shoulders and spine. I IMPRESSION: 1. Postoperative changes of the right lung with stable positioning of the right-sided chest tube. 2. No pneumothorax identified. 3. Trace pleural effusions with persistent bibasilar opacities. 4. Emphysema. The above report was generated using voice recognition software. It may contain grammatical, syntax o r spelling errors. Electronically signed by: North Yeager M.D. 07/07/2019 7:24 AM
--- NOTE | 2019-07-07 08:30 | XRay Report ---
XR chest 1V portable CLINICAL HISTORY: tube removal COMPARISON STUDY: Chest radiograph July 07, 2019 7:07 AM. FINDINGS: The right chest tube has been removed. Bibasilar opacities are noted. There is a trace left pleural effusion. No pneumothorax is identified. There is no evidence for pulmonary edema. Subcutane ous gas within the right chest wall is unchanged. Postoperative findings within the right lung are no quiana. IMPRESSION: No pneumothorax following chest tube removal. Electronically signed by: Robert Hodgson M.D. 07/07/2019 8:29 AM
[2019-07-07] MEDS: TICAGRELOR 90 MG TAB PO SCH (08:50)
[2019-07-07] MEDS: DOCUSATE SODIUM 100 MG CAP PO SCH (08:50)
[2019-07-07] MEDS: ASPIRIN 81 MG ECTAB PO SCH (08:50)
[2019-07-07] MEDS: METOPROLOL SUCC 25MG EXT REL TAB PO SCH (08:50)
[2019-07-07] MEDS: LOSARTAN POTASSIUM 25 MG TAB PO SCH (08:50)
[2019-07-07] MEDS: NICOTINE 14 MG/24 HR PATCH TD SCH (08:51)
--- NOTE | 2019-07-07 10:23 | Pulmonology Progress Note ---
Date of Service July 07, 2019 Assessment & Plan (1) Coronary arteriosclerosis: Impression: 73-year-old male found to have PET avid right middle lobe mass concerning for primary malignancy status post resection. He had an episode of shortness of breath and chest pain yesterday which was likely postsurgical and resolved with Ativan and Toradol and morphine Recommendations: 1. Status post right middle lobectomy for lung cancer: Management per thoracic surgery. Pain management per surgery 2. COPD: The patient does not appear bronchospastic currently. No indication for steroids. Continue nebulized bronchodilators as needed 3. Hypoxemia: Resolved. The patient is on room air currently 4. Coronary artery disease: Status post drug-eluting stent 3 months ago. Continue aspirin. Brilinta per thoracic surgery. Outpatient follow-up with cardiology 5. I would be happy to see this pleasant patient back in the outpatient setting for continued pulmonary follow-up if needed. Will sign off. Please call if we can be of additional pulmonary assistance (2) Status post lobectomy of lung: (3) Lung cancer: (4) Hypoxemia: Subjective No acute events overnight. The patient states his breathing is better. His chest tubes been removed. He had no additional issues after yesterday morning's events. He is not coughing or expectorating phlegm. No significant chest pain. Review of Systems Review of Systems: Unchanged from prior Physical Exam Constitutional: WD/WN, vitals as above Neck: trachea midline, no thyromegaly Respiratory: Breath sounds slightly diminished bilaterally. No wheezing. Cardiovascular: RRR, no murmur, no edema Gastrointestinal (Abdomen): normal bowel sounds, soft, nontender, no h epatosplenomegaly Musculoskeletal: Extremities: extremities normal to inspection Skin: no rashes, warm and dry Lymphatic: no cervical lymphadenopathy Results & Data Vital Signs (Past 12 Hours) Vital Signs Temp Pulse Resp BP BP Pulse Ox 07/07/19 09:48 95 07/07/19 07:10 36.7 C 69 20 146/79 H 99 07/07/19 04:00 37.0 C 70 18 148/84 H 93 07/07/19 00:00 36.8 C 73 16 148/80 H 93 PG Care Time/CCT Total # of Minutes Spent Total Time Spent with Patient: Total time spent is greater than 50% in coordination of care (as documented) at patient's floor/unit and/or counseling patient:
--- NOTE | 2019-07-07 11:57 | Discharge Summary ---
ADMISSION DIAGNOSIS: Right lung mass. DISCHARGE DIAGNOSIS: Right lung mass. HOSPITAL COURSE: Mr. Martin is a 73-year-old male who was seen and evaluated by Dr. Colby as an outpatient secondary to right-sided lung mass. There is concern for underlying malignancy, so Dr. Colby brought the patient to the operating room on the date of admission where he performed a robotic assisted right video-assisted thoracoscopy with right middle lobectomy and mediastinal lymphadenectomy. It should be noted that the final pathology is pending at the time of dictation. The patient does have a recent history of coronary artery stenting, so he was given an aspirin in the recovery room. He did take Brilinta, which was resumed on postoperative day #1. The patient did not have any sequelae of cardiac ischemia during his hospital course. The patient's chest tube was managed in the appropriate fashion and removed on postop day #2. A post-pull chest x-ray did not reveal any evidence of pneumothorax. The patient did require supplemental oxygen during his postoperative course; however, this was weaned off on postop day #2. The patient ambulated throughout the unit and his pulse ox did not drop below 90%-91% on room air even with activity, so he did not need oxygen at the time of discharge to home. Again, the final pathology was pending at the time of dictation. As his chest tube was removed, there was no pneumothorax. He was deemed stable for discharge home on postop day #2 after an uneventful hospital course. The patient was provided both written and verbal instructions. He was told that he should walk daily. He was told not to drive until cleared to do so by Dr. Colby. He was told he could remove his dressings in 3 days and then shower thereafter using regular soap and water, but not to take any tub baths. Concerning followup, the patient was told that our office will call him for a followup in approximately 1 week. The office will call him to verify time and date of appointment and he was instructed to get a chest x-ray 1 hour before his appointment with Dr. Colby at [facility]. MEDICATIONS AT THE TIME OF DISCHARGE: All of his home medications were unchanged including aspirin 81 mg daily, Lipitor 80 mg daily, Brilinta 90 mg twice daily, Lasix 20 mg at bedtime, Cozaar 25 mg daily, metoprolol 25 mg daily and p.r.n. sublingual nitroglycerin. He was provided with a prescription for tramadol for breakthrough pain and he can take 50 mg of this every 6 hours as needed. The patient expressed his understanding and all of his questions were answered and again was discharged home on postoperative day #2, which was 07/07/2019.
--- NOTE | 2019-07-11 10:21 | Coding Query ---
PATHOLOGY To promote full compliance with coding requirements relating to patient care, physician participation is requested in all cases of tour narrator uncertainty. 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
== END 2019-07-07 11:30 | disposition home or self-care (01) | DRG 163 ==
LOC: ASU 05:45 → 1E 11:18 → 3N 07-06 08:02